=== PATIENT | male | born 1955 | race Caucasian/White ===

== ENCOUNTER 2019-06-08 10:32 | Emergency (ER) | payer MEDICAID ==
[~2019-06-08] VITALS: Ht 182.9 cm; Wt 106.1 kg
--- NOTE | 2019-06-08 10:43 | NUR ---
AT BEDSIDE FOR EVAL.
[2019-06-08 10:46] VITALS: BP 123/84
--- NOTE | 2019-06-08 10:55 | NUR ---
[employer] AT BEDSIDE FOR XRAY.
--- NOTE | 2019-06-08 11:31 | NUR ---
ANKLE SPLINT DONE BY [employer] CLERK.
[2019-06-08] MEDS ORDERED: HYDROCODONE/APAP 5/325MG 1 EACH TABLET ONE (12:15)
[2019-06-08] MEDS ORDERED: HYDROCODONE/APAP 5/325MG 1 EACH TABLET PO ONE (12:30)
== END 2019-06-08 12:04 | disposition home or self-care (01) ==
LOC: ER 10:35
DX: S82.392A Other fracture of lower end of left tibia, initial encounter for closed fracture (principal); S82.832A Other fracture of upper and lower end of left fibula, initial encounter for closed fracture; V49.49XA Driver injured in collision with other motor vehicles in traffic accident, initial encounter; Y93.89 Activity, other specified; Y92.488 Other paved roadways as the place of occurrence of the external cause; Y99.8 Other external cause status
CPT/HCPCS: 73610-TC; 73630-TC